=== PATIENT | male | born 1955 | race Caucasian/White ===

== ENCOUNTER 2016-10-23 00:20 | Inpatient (IN) | payer OTHER ==
[~2016-10-23] VITALS: Ht 177.8 cm; Wt 100.7 kg
[~2016-10-23 00:20] MED LIST: ADVAIR 250-501 EACH IH; ADVAIR 250/501 DIS1 IH; ADVAIR 500/501 DISK IH; AMBIEN10 MG PO; AMLODIPINE BESY10 MG PO; AMLODIPINE BESYL5 MG PO; ANALGESIC325 M1 PO; ANEXSIA 7.5-651 EACH PO; APAP PO; ASPIR-LOW81 MG PO; ASPIR-TRIN325 M1 PO; ATENOLOL50 MG PO; ATORVASTATIN CA40 MG PO; ATORVASTATIN CA80 MG PO; ATORVASTATIN TAB 40M; Advair HFA 115/21 IH; BUPROPION XL150 MG PO; CARISOPRODOL350 MG; CARVEDILOL25 MG PO; CHLORTHALIDONE25 MG PO; CLOPIDOGREL75 MG PO; COMBIVENT RESPIM4 GM IH; COMBIVENT200 INHALA; COMBIVENT200 INHALA IH; Cipro PO; DEPAKOTE250 MG PO; DOCUSATE SODIU100 MG PO; ENDOCET 5-3251 EACH PO; HABITROL,NICODE21 MG TD; HYDROCHLOROTH12.5 M3 PO; HYDROCODONE PO; HYDROCODONE/AP1 EAC1 PO; K-DUR10 MEQ PO; LANTUS (UNITS)1 UNIT SQ; LANTUS 10100 UNITS/ SC; LANTUS 3 M100 UNITS1 SC; LANTUS100 UNIT/1 SQ; LASIX40 MG PO; LEVAQUIN750 MG PO; LEVEMIR FL100 UNIT/1 SC; LIPITOR40 MG PO; LIPITOR80 MG PO; LISINOPRIL10 MG PO; LISINOPRIL40 MG PO; LO-DOSE ASPIRIN81 M1 PO; LOPID600 MG PO; LOW DOSE ASPIRI81 M2 PO; LYRICA150 MG PO; LYRICA75 MG PO; Levaquin PO; MAG-AL PLUS SUS30 ML PO; METFORMIN HCL1000 MG PO; METFORMIN HCL500 MG PO; METOPROLOL TART25 MG PO; MICROZIDE12.5 M1 PO; NEURONTIN400 MG PO; NIASPAN,SLO-NI500 MG PO; NICOTINE PATCH1 EAC2 TD; NIFEDIPINE10 MG PO; NITROSTAT,NITR0.4 M1 SL; NITROSTAT0.4 MG SL; NORVASC10 MG PO; NORVASC5 MG PO; NOVOLOG (UNITS1 UNIT SQ; NOVOLOG 10100 UNITS/ SC; NOVOLOG PE100 UNITS/ SC; NOVOLOG100 UNIT/1 SQ; NOVOLOG100 UNIT/2 SQ; ONDANSETRON ODT4 MG PO; OPANA ER5 MG PO; OXYCODONE HCL10 MG PO; PERCOCET 5/31 TABLET PO; PLAVIX75 MG PO; POTASSIUM AC PO; POTASSIUM CHLO10 ME3 PO; PRINIVIL20 MG PO; PRINIVIL40 MG PO; PROAIR HFA8.5 GM IH; SIMVASTATIN40 M1 PO; SOMA350 MG PO; SONATA10 MG PO; SPIRIVA1 INHALATI IH; Simvastatin PO; TENORMIN50 MG PO; TRAMADOL HCL50 MG; TRAMADOL HCL50 MG PO; TRAZODONE HCL50 MG PO; TYLENOL REGULA325 MG PO; Tenormin PO; ULTRAM50 MG PO; VICODIN 5-5001 EACH PO; Vitamin B-12 PO; ZESTRIL,PRINIVI40 M1 PO; ZESTRIL,PRINIVI40 MG PO; ZOLOFT50 MG PO; ZOLPIDEM TARTRA10 MG PO; Zocor PO
[2016-10-23 01:07] LABS: MCH 28.2 PG (29.0-34.0); MCHC 31.5 G/DL (30.0-36.0); MCV 89.5 FL (86-99); MEAN PLAT.VOLUME 10.8 uM^3 (9.0-12.4); PLATELET COUNT 319 K/uL (156-360); RBC DIS.WIDTH-CV 16.4 % (11.8-14.6); RBC DIS.WIDTH-SD 52.4 % (39-53); RED BLOOD COUNT 4.47 M/uL (4.00-5.50); WHITE BLOOD COUNT 11.9 K/uL (4.1-10.2)
[2016-10-23 01:15] LABS: CHLORIDE 106 mEq/L (99-109); POTASSIUM 4.5 mEq/L (3.7-5.4); SODIUM 140 mEq/L (136-147)
[2016-10-23 01:17] LABS: GLUCOSE 267 mg/dL (70-99)
[2016-10-23 01:18] LABS: ANION GAP 10 MEQ/L (2-14)
[2016-10-23 01:21] LABS: GFR ESTIMATE (CALCULATED) > 59 mL/min/; UREA NITROGEN (BUN) 34 mg/dL (9-23)
[2016-10-23 01:26] LABS: TOTAL BILIRUBIN 0.7 mg/dL (0.0-1.0)
[2016-10-23 01:27] LABS: ALKALINE PHOSPHATASE 133 IU/L (3-129); TROP-I INTERPRETATION NEGATIVE; TROPONIN-I 0.06 ng/mL (0.0-0.30)
[2016-10-23 01:29] LABS: DIRECT BILIRUBIN 0.4 mg/dL (0.0-0.3)
[2016-10-23 02:58] LABS: POINT-OF-CARE METER ID UU14100415
[2016-10-23 03:28] LABS: ADD MIUA? YES; BILIRUBIN SMALL; BLOOD MODERATE; COLOR DK YELLOW ((YELLOW)); GLUCOSE (STRIP) NEGATIVE; KETONES NEGATIVE; LEUKOCYTES SMALL; NITRITE POSITIVE; PH, URINE 5.5 (5-8); PROTEIN (STRIP) >=300; SPECIFIC GRAVITY 1.025 (1.000-1.030)
[2016-10-23 03:56] LABS: BACTERIA 3+ /HPF; EPITHELIAL CELLS RARE /HPF; HYALINE CASTS 0-5 /LPF; MUCUS 1+ /LPF; RED BLOOD CELLS 0-5 /HPF (0-5); UCUL ADDED? YES; WHITE BLOOD CELLS TNTC /HPF (0-5)
[2016-10-23 07:00] LABS: HEMATOCRIT 41.1 % (38.0-50.0); MCH 28.2 PG (29.0-34.0); MCHC 32.1 G/DL (30.0-36.0); MCV 87.8 FL (86-99); MEAN PLAT.VOLUME 10.8 uM^3 (9.0-12.4); PLATELET COUNT 351 K/uL (156-360); RBC DIS.WIDTH-CV 16.4 % (11.8-14.6); RBC DIS.WIDTH-SD 51.8 % (39-53); RED BLOOD COUNT 4.68 M/uL (4.00-5.50); WHITE BLOOD COUNT 13.5 K/uL (4.1-10.2)
[2016-10-23 07:38] LABS: ALKALINE PHOSPHATASE 147 IU/L (3-129); ANION GAP 11 MEQ/L (2-14); CHLORIDE 104 MEQ/L (99-109); GFR ESTIMATE (CALCULATED) > 59 mL/min/; GLUCOSE 211 mg/dL (70-99); POTASSIUM 4.5 MEQ/L (3.7-5.4); SAMPLE HEMOLYSIS CHECK 0; SAMPLE ICTERIC CHECK 0; SAMPLE LIPEMIA CHECK 0; SODIUM 139 MEQ/L (136-147); TOTAL BILIRUBIN 0.8 MG/DL (0.0-1.0); UREA NITROGEN (BUN) 32 mg/dL (9-23)
[2016-10-23 08:03] LABS: POINT-OF-CARE METER ID UU13113702
[2016-10-23] MEDS ORDERED: OPANA ER10 MG PO (08:59)
[2016-10-23] MEDS ORDERED: PERCOCET 10/1 TABLET PO (09:02)
[2016-10-23 12:12] LABS: POINT-OF-CARE METER ID UU13113702
[2016-10-23 16:23] LABS: POINT-OF-CARE METER ID UU13113702
[2016-10-23 20:00] VITALS: BP 153/98
[2016-10-24] VITALS: BP 132/86
[2016-10-24 01:01] LABS: BICARBONATE 23.1 mEq/L (22-26); CARBOXY HGB 1.3 % (0-5); COMMENTS - BLOOD GASES C+; DEVICE NRB MASK; FI02 100 %; METHEMOGLOBIN 2.4 % (0-1.5); O2 FLOW 15 L/MIN; PCO2 40 mm Hg (35-45); PO2 331 mm Hg (80-100); SITE RR; TOTAL RESP RATE 16 resp/min; pH 7.37 (7.35-7.45)
[2016-10-24 01:24] LABS: HEMATOCRIT 34.8 % (38.0-50.0); MCH 28.3 PG (29.0-34.0); MCHC 32.5 G/DL (30.0-36.0); MCV 87.2 FL (86-99); MEAN PLAT.VOLUME 10.7 uM^3 (9.0-12.4); PLATELET COUNT 327 K/uL (156-360); RBC DIS.WIDTH-SD 50.3 % (39-53); RED BLOOD COUNT 3.99 M/uL (4.00-5.50); WHITE BLOOD COUNT 10.5 K/uL (4.1-10.2)
[2016-10-24 01:34] LABS: CHLORIDE 110 mEq/L (99-109); POTASSIUM 4.3 mEq/L (3.7-5.4); SODIUM 139 mEq/L (136-147)
[2016-10-24 01:37] LABS: ANION GAP 9 MEQ/L (2-14); D-DIMER ELISA 3.44 mg/L FEU (< 0.57)
[2016-10-24 01:38] LABS: TOTAL BILIRUBIN 0.6 mg/dL (0.0-1.0)
[2016-10-24 01:40] LABS: ALKALINE PHOSPHATASE 184 IU/L (3-129); GFR ESTIMATE (CALCULATED) > 59 mL/min/; GLUCOSE 102 mg/dL (70-99)
[2016-10-24 01:41] LABS: UREA NITROGEN (BUN) 39 mg/dL (9-23)
[2016-10-24 01:45] LABS: TROP-I INTERPRETATION NEGATIVE
[2016-10-24 02:45] LABS: ANISOCYTOSIS 2+; BURR CELLS RARE; HEMATOLOGY COMMENT 1 REV; MACROCYTES 1+; MICROCYTOSIS 1+; OVALOCYTES FEW; PLAT.SUFFICIENCY ADEQUATE
[2016-10-24 02:46] LABS: EOSINOPHIL (%) 0.6 % (0-5); EOSINOPHIL COUNT 0.1 K/uL (0-0.3); IMMATURE GRANULOCYTE (%) 0.4 % (0.0-0.7); IMMATURE GRANULOCYTE COUNT 0.4 K/uL; LYMPHOCYTE COUNT 1.8 K/uL (1.0-2.8); MONOCYTE (%) 7.6 % (3-12); MONOCYTE COUNT 0.8 K/uL (0-0.8); NEUTROPHIL (%) 74.4 % (45-76); NEUTROPHIL COUNT 7.9 K/uL (1.8-6.4)
[2016-10-24 03:59] VITALS: BP 177/122
[2016-10-24 04:36] LABS: POINT-OF-CARE METER ID UU14188625
[2016-10-24 04:46] VITALS: BP 145/102
[2016-10-24 05:04] LABS: POINT-OF-CARE METER ID UU14188625
[2016-10-24 07:25] LABS: HEMATOCRIT 38.5 % (38.0-50.0); INTER. NORMALIZED RATIO 1.4; MCH 28.1 PG (29.0-34.0); MCHC 31.4 G/DL (30.0-36.0); MCV 89.5 FL (86-99); MEAN PLAT.VOLUME 11.3 uM^3 (9.0-12.4); PLATELET COUNT 357 K/uL (156-360); PROTHROMBIN TIME 14.8 (9.2-11.2); PTT 28.2 (25-32); RBC DIS.WIDTH-CV 16.5 % (11.8-14.6); RBC DIS.WIDTH-SD 53.8 % (39-53); WHITE BLOOD COUNT 11.7 K/uL (4.1-10.2)
[2016-10-24 07:45] LABS: EOSINOPHIL (%) 0.5 % (0-5); EOSINOPHIL COUNT 0.1 K/uL (0-0.3); IMMATURE GRANULOCYTE (%) 0.3 % (0.0-0.7); LYMPHOCYTE COUNT 1.3 K/uL (1.0-2.8); MONOCYTE (%) 7.9 % (3-12); MONOCYTE COUNT 0.9 K/uL (0-0.8); NEUTROPHIL (%) 80.1 % (45-76); NEUTROPHIL COUNT 9.4 K/uL (1.8-6.4)
[2016-10-24 08:00] LABS: ANION GAP 14 MEQ/L (2-14); CHLORIDE 108 MEQ/L (99-109); GFR ESTIMATE (CALCULATED) > 59 mL/min/; POTASSIUM 4.4 MEQ/L (3.7-5.4); SAMPLE HEMOLYSIS CHECK 0; SAMPLE ICTERIC CHECK 0; SAMPLE LIPEMIA CHECK 0; SODIUM 143 MEQ/L (136-147); UREA NITROGEN (BUN) 39 mg/dL (9-23)
[2016-10-24 08:01] LABS: GLUCOSE 32 mg/dL (70-99)
[2016-10-24 08:52] LABS: POINT-OF-CARE METER ID UU14188625
[2016-10-24 09:43] VITALS: BP 163/118
[2016-10-24 11:40] VITALS: BP 175/109
[2016-10-24 16:12] VITALS: BP 174/97
[2016-10-24 20:49] LABS: POINT-OF-CARE METER ID UU14188625
[2016-10-25] VITALS: BP 143/98
[2016-10-25 07:33] LABS: HEMATOCRIT 37.4 % (38.0-50.0); MCH 27.2 PG (29.0-34.0); MCHC 30.7 G/DL (30.0-36.0); MCV 88.4 FL (86-99); MEAN PLAT.VOLUME 11.1 uM^3 (9.0-12.4); PLATELET COUNT 314 K/uL (156-360); RBC DIS.WIDTH-CV 16.6 % (11.8-14.6); RBC DIS.WIDTH-SD 53.5 % (39-53); RED BLOOD COUNT 4.23 M/uL (4.00-5.50); WHITE BLOOD COUNT 10.7 K/uL (4.1-10.2)
[2016-10-25 07:51] LABS: EOSINOPHIL (%) 0.9 % (0-5); EOSINOPHIL COUNT 0.1 K/uL (0-0.3); IMMATURE GRANULOCYTE (%) 0.5 % (0.0-0.7); IMMATURE GRANULOCYTE COUNT 0.1 K/uL; LYMPHOCYTE COUNT 1.3 K/uL (1.0-2.8); MONOCYTE (%) 8.9 % (3-12); NEUTROPHIL (%) 77.1 % (45-76); NEUTROPHIL COUNT 8.3 K/uL (1.8-6.4)
[2016-10-25 07:58] LABS: ANION GAP 8 MEQ/L (2-14); CHLORIDE 108 MEQ/L (99-109); GFR ESTIMATE (CALCULATED) > 59 mL/min/; POTASSIUM 4.2 MEQ/L (3.7-5.4); SAMPLE HEMOLYSIS CHECK 0; SAMPLE ICTERIC CHECK 0; SAMPLE LIPEMIA CHECK 0; SODIUM 138 MEQ/L (136-147); UREA NITROGEN (BUN) 31 mg/dL (9-23)
[2016-10-25 08:11] LABS: GLUCOSE 250 mg/dL (70-99)
[2016-10-25 16:00] VITALS: BP 150/98
[2016-10-26] VITALS (7 sets, daily range): BP systolic 137–179; BP diastolic 86–108
[2016-10-26 06:27] LABS: HEMATOCRIT 39.9 % (38.0-50.0); MCH 27.4 PG (29.0-34.0); MCHC 30.3 G/DL (30.0-36.0); MCV 90.3 FL (86-99); PLATELET COUNT 300 K/uL (156-360); RBC DIS.WIDTH-CV 16.7 % (11.8-14.6); RBC DIS.WIDTH-SD 54.7 % (39-53); RED BLOOD COUNT 4.42 M/uL (4.00-5.50); WHITE BLOOD COUNT 9.1 K/uL (4.1-10.2)
[2016-10-26 06:29] LABS: EOSINOPHIL (%) 1.4 % (0-5); EOSINOPHIL COUNT 0.1 K/uL (0-0.3); IMMATURE GRANULOCYTE (%) 0.3 % (0.0-0.7); LYMPHOCYTE COUNT 1.6 K/uL (1.0-2.8); MONOCYTE COUNT 0.7 K/uL (0-0.8); NEUTROPHIL (%) 72.9 % (45-76); NEUTROPHIL COUNT 6.6 K/uL (1.8-6.4)
[2016-10-26 06:49] LABS: ANION GAP 7 MEQ/L (2-14); CHLORIDE 109 MEQ/L (99-109); GFR ESTIMATE (CALCULATED) > 59 mL/min/; GLUCOSE 153 mg/dL (70-99); POTASSIUM 4.3 MEQ/L (3.7-5.4); SAMPLE HEMOLYSIS CHECK 1; SAMPLE ICTERIC CHECK 0; SAMPLE LIPEMIA CHECK 0; SODIUM 141 MEQ/L (136-147); UREA NITROGEN (BUN) 32 mg/dL (9-23)
[2016-10-26 22:14] LABS: POINT-OF-CARE METER ID UU13113675
[2016-10-27 07:01] LABS: MCH 27.2 PG (29.0-34.0); MCV 90.5 FL (86-99); MEAN PLAT.VOLUME 10.9 uM^3 (9.0-12.4); PLATELET COUNT 311 K/uL (156-360); RBC DIS.WIDTH-CV 16.8 % (11.8-14.6); RBC DIS.WIDTH-SD 54.8 % (39-53); RED BLOOD COUNT 4.75 M/uL (4.00-5.50)
[2016-10-27 07:22] LABS: ANION GAP 4 MEQ/L (2-14); CHLORIDE 110 MEQ/L (99-109); GFR ESTIMATE (CALCULATED) > 59 mL/min/; GLUCOSE 196 mg/dL (70-99); POTASSIUM 4.9 MEQ/L (3.7-5.4); SAMPLE HEMOLYSIS CHECK 2; SAMPLE ICTERIC CHECK 0; SAMPLE LIPEMIA CHECK 0; SODIUM 141 MEQ/L (136-147); UREA NITROGEN (BUN) 27 mg/dL (9-23)
[2016-10-27 07:23] VITALS: BP 150/83
[2016-10-27 07:31] LABS: EOSINOPHIL (%) 1.9 % (0-5); EOSINOPHIL COUNT 0.2 K/uL (0-0.3); IMMATURE GRANULOCYTE (%) 0.3 % (0.0-0.7); LYMPHOCYTE COUNT 1.5 K/uL (1.0-2.8); MONOCYTE (%) 6.7 % (3-12); MONOCYTE COUNT 0.7 K/uL (0-0.8); NEUTROPHIL COUNT 7.6 K/uL (1.8-6.4)
[2016-10-27 08:24] LABS: POINT-OF-CARE METER ID UU14188625
[2016-10-27 12:03] LABS: POINT-OF-CARE METER ID UU14188625
[2016-10-27 15:41] VITALS: BP 144/84
[2016-10-27 17:20] LABS: POINT-OF-CARE METER ID UU14188625
[2016-10-27 22:24] LABS: POINT-OF-CARE METER ID UU14188625
[2016-10-28] VITALS: BP 141/67
[2016-10-28 07:40] VITALS: BP 133/71
[2016-10-28 08:33] LABS: HEMATOCRIT 38.3 % (38.0-50.0); MCH 27.3 PG (29.0-34.0); MCHC 29.8 G/DL (30.0-36.0); MCV 91.6 FL (86-99); MEAN PLAT.VOLUME 10.8 uM^3 (9.0-12.4); PLATELET COUNT 312 K/uL (156-360); RBC DIS.WIDTH-CV 16.7 % (11.8-14.6); RBC DIS.WIDTH-SD 55.4 % (39-53); RED BLOOD COUNT 4.18 M/uL (4.00-5.50); WHITE BLOOD COUNT 11.8 K/uL (4.1-10.2)
[2016-10-28 08:57] LABS: EOSINOPHIL (%) 1.6 % (0-5); EOSINOPHIL COUNT 0.2 K/uL (0-0.3); IMMATURE GRANULOCYTE (%) 0.3 % (0.0-0.7); LYMPHOCYTE COUNT 1.5 K/uL (1.0-2.8); MONOCYTE (%) 8.8 % (3-12)
[2016-10-28 09:03] LABS: ANION GAP 5 MEQ/L (2-14); CHLORIDE 109 MEQ/L (99-109); GFR ESTIMATE (CALCULATED) > 59 mL/min/; POTASSIUM 4.3 MEQ/L (3.7-5.4); SAMPLE HEMOLYSIS CHECK 0; SAMPLE ICTERIC CHECK 0; SAMPLE LIPEMIA CHECK 0; SODIUM 143 MEQ/L (136-147); UREA NITROGEN (BUN) 22 mg/dL (9-23)
[2016-10-28 09:09] LABS: GLUCOSE 119 mg/dL (70-99)
[2016-10-28 18:05] LABS: POINT-OF-CARE METER ID UU14174225
[2016-10-28 23:34] VITALS: BP 128/71
[2016-10-29 06:47] LABS: HEMATOCRIT 38.3 % (38.0-50.0); MCH 28.1 PG (29.0-34.0); MCHC 30.5 G/DL (30.0-36.0); MCV 92.1 FL (86-99); MEAN PLAT.VOLUME 10.7 uM^3 (9.0-12.4); PLATELET COUNT 274 K/uL (156-360); RBC DIS.WIDTH-CV 16.4 % (11.8-14.6); RBC DIS.WIDTH-SD 55.3 % (39-53); RED BLOOD COUNT 4.16 M/uL (4.00-5.50); WHITE BLOOD COUNT 11.3 K/uL (4.1-10.2)
[2016-10-29 06:55] LABS: ANION GAP 5 MEQ/L (2-14); CHLORIDE 109 MEQ/L (99-109); GFR ESTIMATE (CALCULATED) > 59 mL/min/; POTASSIUM 3.9 MEQ/L (3.7-5.4); SAMPLE HEMOLYSIS CHECK 0; SAMPLE ICTERIC CHECK 0; SAMPLE LIPEMIA CHECK 0; SODIUM 143 MEQ/L (136-147); UREA NITROGEN (BUN) 21 mg/dL (9-23)
[2016-10-29 07:00] LABS: EOSINOPHIL (%) 1.9 % (0-5); EOSINOPHIL COUNT 0.2 K/uL (0-0.3); IMMATURE GRANULOCYTE (%) 0.3 % (0.0-0.7); LYMPHOCYTE COUNT 1.8 K/uL (1.0-2.8); MONOCYTE (%) 8.8 % (3-12); NEUTROPHIL COUNT 8.3 K/uL (1.8-6.4)
[2016-10-29 07:05] LABS: GLUCOSE 182 mg/dL (70-99); VANCOMYCIN, TROUGH 24.7 MCG/ML (10-20)
[2016-10-29 08:36] LABS: POINT-OF-CARE METER ID UU14174225
[2016-10-29 08:50] VITALS: BP 174/102
[2016-10-29 16:00] VITALS: BP 197/115
[2016-10-29 16:54] LABS: POINT-OF-CARE METER ID UU14188625
[2016-10-29 20:53] LABS: POINT-OF-CARE METER ID UU14174225
[2016-10-30 00:22] VITALS: BP 103/57
[2016-10-30 07:27] VITALS: BP 136/74
[2016-10-30 08:39] LABS: HEMATOCRIT 33.7 % (38.0-50.0); MCH 28.6 PG (29.0-34.0); MCHC 31.5 G/DL (30.0-36.0); MCV 91.1 FL (86-99); PLATELET COUNT 241 K/uL (156-360); RBC DIS.WIDTH-CV 16.2 % (11.8-14.6); RBC DIS.WIDTH-SD 53.5 % (39-53); WHITE BLOOD COUNT 11.1 K/uL (4.1-10.2)
[2016-10-30] MEDS ORDERED: HYDROCHLOROTHIA25 MG PO (12:16)
[2016-10-30] MEDS ORDERED: LASIX40 MG PO (12:16)
[2016-10-30] MEDS ORDERED: AMOX TR-K CLV1 EAC4 PO (12:16)
[2016-10-30 12:23] LABS: POINT-OF-CARE METER ID UU14174225
[2016-10-30 15:22] VITALS: BP 142/74
[2016-10-30 16:16] VITALS: BP 142/76
[2016-10-31] VITALS: BP 135/73
[2016-10-31 07:32] VITALS: BP 138/74
[2016-10-31 09:15] LABS: ANION GAP 5 MEQ/L (2-14); CHLORIDE 105 MEQ/L (99-109); GFR ESTIMATE (CALCULATED) > 59 mL/min/; GLUCOSE 98 mg/dL (70-99); SAMPLE HEMOLYSIS CHECK 0; SAMPLE ICTERIC CHECK 0; SAMPLE LIPEMIA CHECK 0; SODIUM 140 MEQ/L (136-147); UREA NITROGEN (BUN) 22 mg/dL (9-23)
[2016-10-31] MEDS ORDERED: LASIX40 MG PO (12:21)
[2016-10-31 16:17] VITALS: BP 142/74
== END 2016-10-31 17:32 | DRG 503 ==
LOC: EME 00:20 → 5SOUTH 04:04 → EDOF 04:04 → 5SOUTH 19:26
PROVIDERS: Emergency Medicine; Internal Medicine; Physician Assistant Medical; Student in an Organized Health Care Education/Training Program
PROC: 0Y6Q0Z2 Detachment at Left 1st Toe, Mid, Open Approach (ICD-10-PCS; principal; 2016-10-26)
DX: M86.9 Osteomyelitis, unspecified (principal); J18.9 Pneumonia, unspecified organism; E11.69 Type 2 diabetes mellitus with other specified complication; L03.032 Cellulitis of left toe; J44.0 Chronic obstructive pulmonary disease with (acute) lower respiratory infection; J44.1 Chronic obstructive pulmonary disease with (acute) exacerbation; I50.22 Chronic systolic (congestive) heart failure; I11.0 Hypertensive heart disease with heart failure; E11.40 Type 2 diabetes mellitus with diabetic neuropathy, unspecified; E11.621 Type 2 diabetes mellitus with foot ulcer; E11.649 Type 2 diabetes mellitus with hypoglycemia without coma; E78.00 Pure hypercholesterolemia, unspecified; I25.10 Atherosclerotic heart disease of native coronary artery without angina pectoris; I25.2 Old myocardial infarction; I48.0 Paroxysmal atrial fibrillation; B95.62 Methicillin resistant Staphylococcus aureus infection as the cause of diseases classified elsewhere; Z99.81 Dependence on supplemental oxygen; M79.7 Fibromyalgia; Z96.651 Presence of right artificial knee joint; F17.210 Nicotine dependence, cigarettes, uncomplicated; L97.529 Non-pressure chronic ulcer of other part of left foot with unspecified severity; Z93.3 Colostomy status; E66.9 Obesity, unspecified; Z68.31 Body mass index [BMI] 31.0-31.9, adult
CPT/HCPCS: 36600; 70450; 71010; 71275; 73630; 73718; 76937; 80048; 80053; 80076; 80202; 81003; 82803; 82948; 83605; 84484; 85025; 85025 91; 85027; 85379; 85610; 85730; 87040; 87070; 87075; 87076; 87077; 87086; 87147; 87185; 87186; 87205; 87641; 88305; 88311; 93005; 94640 76; 94799; 97530 GP; 99202; 99281; 99285; J0360; J0692; J1630; J1644; J1650; J1815; J1940; J1956; J2250; J2310; J2543; J3010; J3370; J7030; J7040; J7050; S0020